=== PATIENT | male | born 1940 | race Caucasian/White ===

== ENCOUNTER 2018-09-29 06:21 | Day surgery (SDC) | payer OTHER, MEDICARE ==
[2018-09-29] MEDS ORDERED: Propofol 200 MG/20 ML SDV ONE (07:34)
[2018-09-29] MEDS ORDERED: fentaNYL 100 MCG/2 ML SDV ONE (07:34)
--- NOTE | 2018-09-29 07:45 | PCM.PREANE ---
Preanesthetic Assessment - Anesthesia/Transfusion/Family Hx Anesthesia History: Prior Anesthesia Without Reaction Family History of Anesthesia Reaction: No Transfusion History: No Prior Transfusion(s) Intubation History: Unknown - Review of Systems General: No Symptoms Pulmonary: No Symptoms Cardiovascular: No Symptoms Gastrointestinal: No Symptoms Neurological: No Symptoms Other: Reports: None - Physical Assessment Height: 1.7 m Weight: 86.636 kg ASA Class: 2 Mental Status: Alert & Oriented x3 Airway Class: Mallampati = 2 Dentition: Reports: Normal Dentition (bonded front upper tooth #9) Thyro-Mental Finger Breadths: 3 Mouth Opening Finger Breadths: 2 (small mouth) ROM/Head Extension: Limited/Partial Lungs: Clear to Auscultation, Normal Respiratory Effort Cardiovascular: Regular Rate, Regular Rhythm - Allergies Allergies/Adverse Reactions: Allergies Allergy/AdvReac Type Severity Reaction Status Date / Time No Known Allergies Allergy Verified 09/24/18 14:06 - Blood Blood Available: No - Anesthesia Plan Pre-Op Medication Ordered: None - Acknowledgements Anesthesia Type Planned: MAC Pt an Appropriate Candidate for the Planned Anesthesia: Yes Alternatives and Risks of Anesthesia Discussed w Pt/Guardian: Yes Pt/Guardian Understands and Agrees with Anesthesia Plan: Yes PreAnesthesia Questionnaire HEENT History: Reports: Cataract, Hard of Hearing, Other (See Below) Other HEENT History: has bilateral hearing aides, has 2 upper permanent dental bridges Cardiovascular History: Reports: Arrhythmia, Hypertension, Other (See Below) ( stress test last week was normal) Other Cardiovascular History: 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 Gastrointestinal History: Reports: Colon Polyp, GERD, Hemorrhoids Genitourinary History: Reports: BPH Musculoskeletal History: Reports: Arthritis Other Musculoskeletal History: 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 - Infectious Disease History Infectious Disease History: Reports: Measles, Mumps, Other (See Below) ( infected broken tooth last week- took antibiotic) - Past Surgical History HEENT Surgical History: Reports: Cataract Surgery, Tonsillectomy GI Surgical History: Reports: Colonoscopy, Other (See Below) Other GI Surgeries/Procedures: Hemorrhoidectomy Musculoskeletal Surgical History: Reports: Other (See Below) (foot surgery) - SUBSTANCE USE Smoking Status *Q: Former Smoker (quit 2002) Tobacco Use Within Last Twelve Months: No Recreational Drug Use History: No - HOME MEDS Home Medications: Home Meds Omeprazole Magnesium [Prilosec Otc] 20 mg PO DAILY 08/16/18 [History] Ascorbic Acid [Vitamin C] 100 mg PO DAILY 09/24/18 [History] Aspirin [Adult Low Dose Aspirin EC] 81 mg PO DAILY 09/24/18 [History] Fish Oil/[place]-3 Fatty Acids [Fish Oil 1,000 MG] 1,000 mg PO DAILY 09/24/18 [ History] Multivitamin [Daily Multiple Vitamin] 1 tab PO DAILY 09/24/18 [History] Ramipril 2.5 mg PO DAILY 09/24/18 [History] Vitamin E 100 unit PO DAILY 09/24/18 [History] Zinc Acetate [Galzin] 25 mg PO DAILY 09/24/18 [History] - CURRENT (IN HOUSE) MEDS Current Meds: Current Medications Bupivacaine HCl/Epinephrine Bitart (Marcaine 0.25%/Epinephrine 1:200,000) 10 ml INJECT ONETIME ONE Stop: 09/29/18 08:01 Cefazolin Sodium/Dextrose 2 gm (/ Premix) 50 mls @ 100 mls/hr IV ONETIME ONE Stop: 09/29/18 08:29 Lactated Ringer's (Ringers, Lactated) 1,000 mls @ 125 mls/hr IV ASDIRECTED JUDY Tramadol HCl (Ultram) 50 mg PO Q4H PRN PRN Reason: Pain Discontinued Medications Fentanyl (Sublimaze) Confirm Administered Dose 100 mcg .ROUTE .STK-MED ONE Stop: 09/29/18 07:35 Lidocaine HCl (Xylocaine-Mpf 1%) Confirm Administered Dose 5 mls @ as directed .ROUTE .STK-MED ONE Stop: 09/29/18 07:35 Propofol (Diprivan 20 Ml) Confirm Administered Dose 200 mg .ROUTE .STK-MED ONE Stop: 09/29/18 07:35
[2018-09-29] MEDS ORDERED: ceFAZolin 2 GM in Premix Bag 1 BAG IV ONE (08:00)
[2018-09-29] MEDS ORDERED: traMADol 50 MG Tab PO PRN (08:00)
[2018-09-29] MEDS ORDERED: Lactated Ringers 1,000 ML IV SCH (08:00)
[2018-09-29] MEDS ORDERED: Bupivacaine 0.25%/EPINEPHrine 1:200,000 10 ML SDV INJECT ONE (08:00)
[2018-09-29] MEDS ORDERED: Dexamethasone/Tobramycin 0.1-0.3% Ophth Susp 2.5 ML Bottle ONE (09:11)
[2018-09-29] MEDS ORDERED: Bupivacaine 0.25%/EPINEPHrine 1:200,000 10 ML SDV ONE (09:12)
[2018-09-29] MEDS ORDERED: Octyl 2-Cyanoacrylate 1 Tube ONE (09:12)
[2018-09-29] MEDS ORDERED: ceFAZolin 1 GM Vial ONE (09:31)
[2018-09-29] MEDS ORDERED: Sodium Chloride 0.9% 20 ML ONE (09:31)
--- NOTE | 2018-09-29 11:06 | PCM48HPAN ---
Post Anesthesia Note - EVALUATION WITHIN 48HRS OF ANESTHETIC Vital Signs in Normal Range: Yes Patient Participated in Evaluation: Yes Respiratory Function Stable: Yes Airway Patent: Yes Cardiovascular Function Stable: Yes Hydration Status Stable: Yes Pain Control Satisfactory: Yes Nausea and Vomiting Control Satisfactory: Yes Mental Status Recovered: Yes Resp Rate: 15 - COMMENTS/OBSERVATIONS Free Text/Narrative:: no anesthesia problems
--- NOTE | 2018-09-29 11:06 | PCM.POSTAN ---
POST ANESTHESIA ASSESSMENT - MENTAL STATUS Mental Status: Alert, Oriented - RESPIRATORY Respiratory Status: Respiratory Rate WNL, Airway Patent, O2 Saturation Stable - CARDIOVASCULAR CV Status: Pulse Rate WNL, Blood Pressure Stable - GASTROINTESTINAL GI Status: No Symptoms - PAIN Pain Score: 0 - POST OP HYDRATION Hydration Status: Adequate & Stable - OBSERVATIONS Free Text/Narrative:: no anesthesia problems, patient skipped recovery room stage of postoperative care
--- NOTE | 2018-09-29 14:58 | PCM.OPNOTE ---
- General Post-Op/Procedure Note Date of Surgery/Procedure: 09/29/18 Operative Procedure(s): bilateral upper lid blepharoplasties for excess skin Pre Op Diagnosis: dermatochalasis of bilateral upper lids Post-Op Diagnosis: Same Anesthesia Technique: Local, MAC Primary Surgeon: Joann Fagan Systems Architect: Rosa M Chase Complications: None Condition: Good
--- NOTE | 2018-09-29 17:16 | OR ---
SURGEON: LEN CHRISTIANSEN MD DATE OF PROCEDURE: 09/29/2018 PREOPERATIVE DIAGNOSIS: Bilateral upper lid dermatochalasis. POSTOPERATIVE DIAGNOSIS: Bilateral upper lid dermatochalasis. PROCEDURES: Bilateral upper lid blepharoplasties for excess skin weighing down lids. TOPPIECE CHOPPER: KATHIE Anderson. REASON FOR AND ROLE OF TOPPIECE CHOPPER: Retraction, prepping, draping, positioning and closure assistance ANESTHESIA: Local MAC. INDICATIONS: Mr. Alcala is a 78-year-old gentleman with visual obstruction from his excess upper eyelid skin. Risks and benefits of removal of the skin for improved visual field was discussed with him and he is in agreement to proceed. Risks were including, but not limited to, bleeding, infection, damage to underlying or overlying structures, possible need for future interventions, and possible scarring. PROCEDURE IN DETAIL: After informed consent was obtained and placed on the chart, the patient was brought to the operating theater and laid in supine position. After adequate local MAC anesthesia was obtained, the area was prepped and draped, and a time- out was completed to confirm side and site. Attention was then paid to marking and then injection with 0.25% Marcaine with epinephrine in a field block. Once adequately anesthetized, a #15 blade was used to dissect through the skin for removal of this excess skin as marked and measured. Once adequately removed, meticulous hemostasis was obtained using Bovie electrocautery, and skin was closed using a deep Monocryl stitch and a running 6-0 Prolene for the skin. This was Steri-Stripped in place, and a symmetry procedure was completed on the opposite eye. Once adequately closed, the patient was transferred to the PACU in stable condition, and he will see us in clinic in one week, sooner if any problems, questions, or concerns. He was given instructions for pain control using over- the-counter medications, and will see us for suture removal. Wound instructions were provided as well. Tobradex drops called to the pharmacy. JAVAN / SOLEDAD /[id number]
== END 2018-09-29 11:15 | disposition home or self-care (01) ==
LOC: MW.SDS 06:21
PROVIDERS: ATTEND Plastic Surgery
DX: H02.831 Dermatochalasis of right upper eyelid (principal); H02.834 Dermatochalasis of left upper eyelid; I10 Essential (primary) hypertension; J42 Unspecified chronic bronchitis; Z87.891 Personal history of nicotine dependence; Z79.82 Long term (current) use of aspirin; Z79.899 Other long term (current) drug therapy
CPT/HCPCS: 15823; J0690; J2704; J3010; J3490; J7120; A9270-GY

== ENCOUNTER 2019-08-29 12:14 | Emergency (ER) | payer OTHER, MEDICARE ==
[2019-08-29] MEDS: Diphtheria,Pertussis(Acell),Tetanus Vaccine 0.5 ML Syringe IM ONE (12:51)
[2019-08-29] MEDS: Diphtheria/Tetanus Toxoids,Adult (Td) 0.5 ML Syringe IM ONE (13:01)
--- NOTE | 2019-08-29 13:08 | CT ---
Head CT Technique: Multiple axial sections through the brain were obtained. Intravenous contrast was not utilized. Comparison: No prior intracranial imaging is available. Findings: Ventricles along with basal cisterns and sulci of the convexities are mildly prominent. No abnormal parenchymal densities are seen. No evidence of intracranial hemorrhage. No midline shift or mass effect is seen. Bone window settings were reviewed. No acute calvarial abnormality is seen. Mastoid sinuses show nothing acute. Visualized paranasal sinuses show nothing acute. Impression: 1. Nothing acute is seen on noncontrast head CT study. Diagnostic code #1 This report was dictated in [place] Standard Time
--- NOTE | 2019-08-29 13:08 | CR ---
Chest: Frontal view of the chest was obtained. Comparison: Prior chest x-ray of 03/14/19. Slight parenchymal density within the left base most likely representing scar. Lungs otherwise are clear with no acute parenchymal change. Heart size is normal. Tortuous thoracic aorta is noted. Bony structures are grossly intact. Impression: 1. Findings as noted above believed to be stable. 2. Nothing acute is appreciated on frontal chest x-ray. Diagnostic code #2 This report was dictated in [place] Standard Time
[2019-08-29] MEDS: Lidocaine 1% with EPINEPHrine 1:100,000 20 ML MDV INJECT ONE (13:30)
--- NOTE | 2019-08-29 14:08 | EDM.PDOC ---
ED [facility] GENERAL MEDICAL PROBLEM - General Chief Complaint: Trauma Stated Complaint: FELL AND HURT RIGHT SHOULDER AND HEAD Time Seen by Provider: 08/29/19 12:25 - History of Present Illness INITIAL COMMENTS - FREE TEXT/NARRATIVE: HPI 79-year-old male on 81 mg ASA q.d. presents for evaluation of injuries on his right forehead area after an apparent mechanical fall from standing height. Patient also endorses mild right shoulder pain and mild right hip pain. Patient denies LOC, no preceding chest pain, abdominal pain, shortness breath, currently asymptomatic, no headache, changes in vision or hearing, neck pain, or further symptoms. Patient was able to stand and remains ambulatory without discomfort following his injury. M/S/F/SocHx notable for: please see HPI; remainder reviewed with patient and in chart. ROS: Negative constitutional, eye, cardiovascular, pulmonary, GI, , MSK, skin , neurologic, psychiatric, endocrine unless noted in the HPI. Exam HR 85, RR 16, BP one 3497, T 36.3C, SaO2 91% on room air. General: Pleasant, non-toxic appearing, resting comfortably. HENT: approximately 1 cm in diameter stellate laceration on the lateral edge of the right eyebrow, immediately superior and medial is an approximately 1.5 cm full-thickness linear laceration, no underlying bony tenderness palpation, no further evidence of facial or head trauma, TTP of orbits, TTP of midface, malocclusion, or septal hematoma. OP clear and moist, dentition intact. Eyes: EOMI, PERRL. Neck: Tracheal midline. No visible skin defects, no step-offs, c-spine TTP, stridor, or JVD. Cardiac: RRR with no M/R/G. Chest: No crepitus, visual evidence of trauma, equal chest rise, TTP. Pulm: clear to auscultation bilaterally. Effort WNL w/o accessory muscle usage. Abd: Soft, NT, ND, no guarding or visual evidence of trauma. Back: No spinous process TTP, no step-offs or visible injury. Pelvis: Stable, no TTP. RUE: Bundle Person 5/5, hand warm and well perfused with sensation intact to touch, no visible injuries. Full functional range of motion the shoulder on abduction, adduction, internal rotation and external rotation. No clavicular tenderness to palpation. No scapular tenderness palpation. LUE: Bundle Person 5/5, hand warm and well perfused with sensation intact to touch, no visible injuries. RLE: Dorsiflexion 5/5, foot warm and well perfused with sensation intact to touch, no visible injuries. LLE: Dorsiflexion 5/5, foot warm and well perfused with sensation intact to touch, no visible injuries. Gait: patient able to comfortably stand on heels and toes. Neuro: alert and oriented 3, CN VII intact Skin: Warm and dry (focal injuries noted above). Psych: Normal affect and judgment. Labs / Imaging (pertinent): CT head: nothing acute is seen on noncontrast head CT study. CXR: site parenchymal density within the left lung base most likely representing scar. Once otherwise clear with no acute parenchymal change. Heart size is normal. Torturous thoracic aorta is noted. These findings are believed to be stable. Nothing acute is appreciated on frontal chest x-ray. MDM Previous chart, nursing note, and vitals reviewed. A: 79-year-old male on 81 mg ASA q.d. presents for evaluation of injuries on his right forehead area after an apparent mechanical fall from standing height. DDx and evaluation: Trauma - lacerations, repaired as documented below. History, exam, imaging without evidence of further clinically significant abnormalities. Patient with mild right shoulder pain full functional range of motion and no evidence of traumatic abnormalities by history or chest x-ray. CMS intact. Patient with mild right hip/pelvis pain, ambulatory without discernible discomfort, no tenderness palpation, CMS intact. Imaging not warranted. Tdap booster given. Fall Etiology: mechanical by history, patient declined further evaluation. Disposition: discharge with PCP follow-up in 5 days for suture removal. Return to care precautions provided. Impression: mechanical fall, lacerations. (please reference below for remainder of encounter information) Laceration Repair Linear Laceration Verbal consent obtained. Wound cleaned with ~100 ML sterile saline. Local infiltration of ~1 mL of 1% lidocaine with epinephrine was used for anesthesia. No debriding of tissue required. No foreign bodies removed, entirety of wound well visualized with no remaining foreign bodies appreciated. Using a clean procedure the wound was repaired with 3 5-0nylon simple interrupted sutures. No undermining required, patient tolerated the procedure well without apparent complications. Laceration Repair Stellate Laceration Verbal consent obtained. Wound cleaned with ~100 ML sterile saline. Local infiltration of ~1 mL of 1% lidocaine with epinephrine was used for anesthesia. No debriding of tissue required. No foreign bodies removed, entirety of wound well visualized with no remaining foreign bodies appreciated. Using a clean procedure the wound was repaired with 3 5-0nylon simple interrupted sutures. No undermining required, patient tolerated the procedure well without apparent complications. Right Shoulder Pain Score (Numeric/FACES): 5 - Related Data Allergies Allergy/AdvReac Type Severity Reaction Status Date / Time No Known Allergies Allergy Verified 08/29/19 12:20 Home Meds: Home Meds Omeprazole Magnesium [Prilosec Otc] 20 mg PO DAILY 08/16/18 [History] Ascorbic Acid [Vitamin C] 100 mg PO DAILY 09/24/18 [History] Aspirin [Adult Low Dose Aspirin EC] 81 mg PO DAILY 09/24/18 [History] Fish Oil/Lerona-3 Fatty Acids [Fish Oil 1,000 MG] 1,000 mg PO DAILY 09/24/18 [ History] Multivitamin [Daily Multiple Vitamin] 1 tab PO DAILY 09/24/18 [History] Ramipril 2.5 mg PO DAILY 09/24/18 [History] Vitamin E 100 unit PO DAILY 09/24/18 [History] Zinc Acetate [Galzin] 25 mg PO DAILY 09/24/18 [History] Dexamethasone/Tobramycin [Tobradex Ophth Susp] 2.5 ml EYEBOTH Q4H #1 bottle [Rx] traMADol [Ultram] 50 mg PO Q4H PRN #30 tablet 09/29/18 [Rx] Past Medical History HEENT History: Reports: Cataract, Hard of Hearing, Other (See Below) Other HEENT History: has bilateral hearing aides, has 2 upper permanent dental bridges Cardiovascular History: Reports: Arrhythmia, Hypertension, Other (See Below) Other Cardiovascular History: 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 Gastrointestinal History: Reports: GERD Genitourinary History: Reports: BPH Musculoskeletal History: Reports: Arthritis Other Musculoskeletal History: 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 - Infectious Disease History Infectious Disease History: Reports: Measles, Mumps, Other (See Below) ( infected broken tooth last week- took antibiotic) - Past Surgical History HEENT Surgical History: Reports: Tonsillectomy Musculoskeletal Surgical History: Reports: Other (See Below) Social & Family History - Family History Family Medical History: Noncontributory - Tobacco Use Smoking Status *Q: Never Smoker Second Hand Smoke Exposure: No - Caffeine Use Caffeine Use: Reports: Coffee - Recreational Drug Use Recreational Drug Use: No Review of Systems - Review of Systems Review Of Systems: See Below ED EXAM, GENERAL - Physical Exam Exam: See Below Course - Vital Signs Last Recorded V/S: Last Vital Signs Temp 36.3 C 08/29/19 12:21 Pulse 85 08/29/19 12:21 Resp 16 08/29/19 12:21 BP 134/97 H 08/29/19 12:21 Pulse Ox 91 L 08/29/19 12:21 - Orders/Labs/Meds Orders: Active Orders 24 hr Category Date Time Status Vaccines to be Administered [RC] PER UNIT ROUTINE Care 08/29/19 12:26 Active Vaccines to be Administered [RC] PER UNIT ROUTINE Care 08/29/19 12:51 Active Meds: Medications Discontinued Medications Generic Name Dose Route Start Last Admin Trade Name Sahara PRN Reason Stop Dose Admin Diphtheria/Tetanus/Acell Pertussis 0.5 ml 08/29/19 12:26 08/29/19 12:51 Boostrix IM 08/29/19 12:27 Not Given .ONCE ONE Lidocaine/Epinephrine 20 ml 08/29/19 12:26 08/29/19 13:30 Xylocaine 1% With Epinephrine 1:100,000 INJECT 08/29/19 12:27 20 ml ONETIME ONE Administration Tetanus/Diphtheria Toxoids 0.5 ml 08/29/19 12:51 08/29/19 13:01 Tenivac IM 08/29/19 12:52 0.5 ml .ONCE ONE Administration Departure - Departure Time of Disposition: 14:07 Disposition: Home, Self-Care 01 Clinical Impression: Fall, Face lacerations - Discharge Information Referrals: Jose Bond MD [Primary Care Provider] - Additional Instructions: You were in seen in the [facility] Emergency Department for evaluation of a fall. You had to lacerations that were repaired with sutures that will need to be removed in 5 days, no further significant abnormalities were noted. Please read and follow all of the instructions below. Please follow up with your primary care physician in 5 days for suture removal. When calling for follow-up care, please make the office aware that this follow- up is from your recent emergency room visit. If for any reason you are refused follow-up, please contact the [facility] Emergency Department at and asked to speak to the emergency department charge nurse. Your care today was limited to identifying and treating emergent medical problems only. Many people have subtle differences in their test results that require follow up with their outpatient physician(s) to correctly determine if this represents a normal variation or concerning abnormality with respect to your specific health. The care given to you today was limited to identifying and treating emergent medical problems - you need to request a copy of all of your medical records from today's visit and follow up with your outpatient physician(s) to review both today's visit and your overall health. If you have any new symptoms or if you are at all concerned about your health please return immediately to the emergency department. Wound Care - Nonabsorbable Sutures See your primary care physician or go to urgent care in 5 days to have your sutures removed. Keep your wound dry and covered with a clean bandage. Keep the wound dry when showering for the first 24 hours. After 24 hours you may gently wash the wound with soap and water and blot dry with a clean towel. You may cover the wound with an antibiotic ointment and a clean bandage. Do not soak the wound (swimming, bathtubs, hot tubs, etc.) until the sutures are removed. Your wound may form a scar. This scar should partially reduce over the next year. You can minimize the scar by applying sunscreen to the scar whenever you go outside for the next year. The tissue that makes up the scar lacks the cells that allow skin to pelaez, this allows sunlight to damage this skin more easily. You may take ibuprofen as directed below for pain. Call your doctor or return to the emergency department if you develop any of the following: Redness at the wound. Increasing pain. Discharge, pus, or swelling at the wound. Fevers, chills, or feeling unwell. If you sustained a cut that could have caused a foreign body to enter your wound, please be aware that pieces of the foreign body may avoid detection during your emergency department evaluation. Some types of foreign bodies are very difficult to detect. Despite careful evaluation there is a small risk that you might have retained material in your wound. Rarely this material will lead to increasing pain, redness, swelling, discharge, pain, and infection. Please return immediately if you have any of these signs. If you are otherwise concerned about your health. It is common to have sore muscles and contusions and after a fall, accident, or motor vehicle accident. These tend to feel worse over the day following the accident. You may also feel worse when you wake up the first morning after your collision. After this point, you will usually begin to improve with each day. The speed of improvement often depends on the severity of the collision, the number of injuries, and the location and nature of these injuries. Home Care Instructions: You may take acetaminophen and ibuprofen as directed below for relief of muscle aches and pains. If you find relief from hot packs or cold packs you may apply these to the affected areas for up to 15 minutes per time, 3-4 times per day. Drink enough fluids to keep your urine clear or pale yellow. Do not drink alcohol. SEEK IMMEDIATE MEDICAL CARE IF: You have numbness, tingling, or weakness in the arms or legs. You develop severe headaches, changes in vision or hearing, or difficulty walking. You have severe neck pain, especially tenderness in the middle of the back of your neck. You have changes in bowel or bladder control. There is increasing pain in any area of the body. You have shortness of breath, lightheadedness, dizziness, or fainting. You have chest pain. You have increasing abdominal discomfort. There is blood in your urine, stool, or vomit. You are otherwise concerned about your health. Difficulty breathing through your nose. This could be due to bruising with swelling of your septum and will require a prompt procedure to prevent further complications. If symptoms are not improving after 2-3 days, please follow up with your primary care physician for reevaluation. Prescriptions: If you are uninsured or have financial difficulties with filling your prescription(s), you may consider using a free pharmacy discount service such as [employer] ([employer]) or [employer] ([employer]). These services allow you to search for a medication on your phone (or computer) and obtain a coupon that usually has a significant discount from the list sanchez at a pharmacy. Your physician as well as [facility] does not have a financial relationship with either of these services. You may also wish to speak with your physician to determine if lower cost prescriptions are possible. Obtaining primary care: 1. [facility] provides pediatrics (children), family medicine (children, adults, and some obstetrical care), and internal medicine (adults). Further specialty care is also available. Same day appointments are available. They may be contacted at [phone] and are open Thursday through Thursday 8 AM to 5 PM. The [facility] are located at [facility], [address] [place] [address]. 2. [facility] offers family medicine, internal medicine, [facility], and further specialty care. [facility] may be contacted at [phone]. [facility] is located at [facility] [place], [address]. 3. If you have health insurance, please also contact your insurer for a list of accepting providers under your policy, you may contact these providers for further health care. Occupational health: Work related injuries may consider following up with [facility], . Occupational health services are located at [address] [place] [id number] and are open Thursday through Thursday from 7: 30 am to 5:00 pm. Obstetrical and Gynecological Care: [facility], , Thursday through Thursday 8 AM to 5 PM. [address], [place] [address]. Eyecare: If you have an eye injury you should follow up with your senior partner or with [facility], at [phone] or [phone] , they are located at [address] [place] [address]. Sepsis Event Note - Evaluation Sepsis Screening Result: No Definite Risk - Focused Exam Vital Signs: Vital Signs Temp Pulse Resp BP Pulse Ox 08/29/19 12:21 36.3 C 85 16 134/97 H 91 L Date Exam was Performed: 08/29/19 Time Exam was Performed: 14:07 - My Orders Last 24 Hours: My Active Orders 08/29/19 12:26 Vaccines to be Administered [RC] PER UNIT ROUTINE 08/29/19 12:51 Vaccines to be Administered [RC] PER UNIT ROUTINE - Assessment/Plan Last 24 Hours: My Active Orders 08/29/19 12:26 Vaccines to be Administered [RC] PER UNIT ROUTINE 08/29/19 12:51 Vaccines to be Administered [RC] PER UNIT ROUTINE
== END 2019-08-29 14:24 | disposition home or self-care (01) ==
LOC: MW.ED 12:14
DX: S01.81XA Laceration without foreign body of other part of head, initial encounter (principal); Z79.899 Other long term (current) drug therapy; Z79.82 Long term (current) use of aspirin; Z23 Encounter for immunization; W19.XXXA Unspecified fall, initial encounter
CPT/HCPCS: 12011; 70450; 70450-26; 71045; 71045-26; 90471; 90714; 99283; 99283-25

== ENCOUNTER 2022-12-22 17:43 | Emergency (ER) | payer BC, MEDICARE ==
[2022-12-22] MEDS ORDERED: Sodium Chloride 0.9% 1,000 ML IV ONE (19:07)
[2022-12-22 19:19] LABS: CARBON DIOXIDE,CO2 27.4 mmol/L (21.0-32.0); POTASSIUM,K 4.2 mmol/L (3.5-5.1)
[2022-12-22] MEDS ORDERED: Iopamidol 755 MG/ML 500 ML Multipack Bottle IVPUSH STA (20:35)
== END 2022-12-22 21:28 | disposition home or self-care (01) ==
LOC: MW.ED 17:43
DX: K57.30 Diverticulosis of large intestine without perforation or abscess without bleeding (principal); K21.9 Gastro-esophageal reflux disease without esophagitis; I10 Essential (primary) hypertension; Z79.82 Long term (current) use of aspirin; Z79.899 Other long term (current) drug therapy
CPT/HCPCS: 36415; 74177; 80053; 81001; 83690; 85025; 99284; J7030; Q9967

== ENCOUNTER 2024-10-09 04:48 | Emergency (ER) | payer BC, MEDICARE | END 2024-10-09 07:39 | disposition home or self-care (01) | LOC: MW.ED 04:48 | DX: S09.90XA Unspecified injury of head, initial encounter (principal); M25.552 Pain in left hip; Z75.8 Other problems related to medical facilities and other health care; Z79.82 Long term (current) use of aspirin; Z79.899 Other long term (current) drug therapy; W01.0XXA Fall on same level from slipping, tripping and stumbling without subsequent striking against object, initial encounter; Y93.01 Activity, walking, marching and hiking | CPT/HCPCS: 70450; 70450-26; 71101-26-LT; 71101-LT; 72125; 72125-26; 73502-26-LT; 73502-LT; 99284 ==

== ENCOUNTER 2025-05-03 06:50 | Day surgery (SDC) | payer BC, MEDICARE ==
[~2025-05-03 06:50] MED LIST: ceFAZolin 2 GM in Water For Injection, Sterile 20 ML IVPUSH ONE
[2025-05-03] MEDS ORDERED: propofoL 1,000 MG/100 ML 100 ML ONE (07:00)
[2025-05-03] MEDS ORDERED: Dexamethasone 4 MG/ML 5 ML MDV ONE (07:05)
[2025-05-03] MEDS ORDERED: fentaNYL 100 MCG/2 ML SDV ONE (07:05)
[2025-05-03] MEDS ORDERED: dexmedeTOMIDine HCl 200 MCG/2 ML SDV ONE (07:05)
[2025-05-03] MEDS ORDERED: Ondansetron 4 MG/2 ML SDV ONE (07:05)
[2025-05-03] MEDS ORDERED: Magnesium Sulfate (4.06 MEQ/ML) 5 GM/10 ML SDV ONE (07:05)
[2025-05-03] MEDS ORDERED: Lidocaine 2% 11 ML Jelly Filled Syringe ONE (07:06)
[2025-05-03] MEDS ORDERED: Morphine 10 MG/ML SDV ONE (07:18)
[2025-05-03] MEDS ORDERED: Ropivacaine 0.5% 5 MG/ML 30 ML SDV ONE (07:23)
[2025-05-03] MEDS: Lactated Ringers 1,000 ML IV SCH (07:44)
[2025-05-03] MEDS ORDERED: Calcium Gluconate 10% 1 GM/10 ML SDV ONE (08:02)
[2025-05-03] MEDS ORDERED: Phenylephrine 1% 10 MG/ML SDV ONE (08:12)
[2025-05-03] MEDS ORDERED: Albuterol 0.083% 2.5 MG/3 ML Neb Soln NEB PRN (08:18)
[2025-05-03] MEDS ORDERED: Naloxone 0.4 MG/ML SDV IVPUSH PRN (08:18)
[2025-05-03] MEDS ORDERED: Ondansetron 4 MG/2 ML SDV IVPUSH PRN (08:18)
[2025-05-03] MEDS ORDERED: fentaNYL 50 MCG/ML SDV IVPUSH PRN (08:18)
[2025-05-03] MEDS ORDERED: propofoL 500 MG/50 ML 50 ML ONE (08:54)
== END 2025-05-03 13:00 | disposition home or self-care (01) ==
LOC: MW.SDS 06:50
PROVIDERS: ATTEND Surgery
DX: K40.90 Unilateral inguinal hernia, without obstruction or gangrene, not specified as recurrent (principal); I10 Essential (primary) hypertension; K21.9 Gastro-esophageal reflux disease without esophagitis; Z79.82 Long term (current) use of aspirin; Z79.899 Other long term (current) drug therapy
CPT/HCPCS: 49650; 93005; A9270; J0612; J0665; J0690; J1100; J2003; J2272; J2371; J2704; J2795; J3010; J3475; J7120; C1781; J2405; J3490